=== PATIENT | female | born 1975 | race Asian ===

== ENCOUNTER → 2016-04-15 | Outpatient (CLI) | payer OTHER ==
--- NOTE | 2016-04-15 15:52 | US ---
Complete Abdominal Sonography Clinical History: 40-year-old female with a palpable left upper quadrant mass. Rule out splenomegaly. Technique: A curvilinear 5 MHz transducer was used to sonographically evaluate the upper abdomen. The patient ingested water immediately before the exam, and delayed imaging through the mid-epigastrium was also performed 2 hours later. Multiple cine clips were acquired. Color Doppler was utilized. Comparison Study: None. Findings: In the left upper quadrant of the abdomen, contiguous with the pancreatic body and tail, th ere is a persistent enlarged complex partially-septated cystic mass, which measures 12.8 x 10.6 x 7.9 cm. There is some arterial flow associated with one of the septations. There also appears to be some echogenic peripheral mural nodular thickening and mobile debris. This mass displaces the left kidney laterally. The left kidney measures 10.5 x 5.2 x 6.4 cm, and the aforementioned mass also slightly d isplaces the spleen, which is otherwise normal in size, measuring 9.0 x 4.2 x 9.2 cm. There is no asc ites. This lesion did not change despite a time interval and emptying of the stomach, and is concerni ng for a mucinous cystic pancreatic tumor. A pancreatic pseudocyst is not considered as likely (as th ey tend not to have many septations or solid components, and there is no reported history of pancreat itis). Other differential considerations may include an intraductal papillary mucinous neoplasm, a ma crocystic variant of serious cystadenoma, or less likely a complex peritoneal inclusion cyst. Multiph asic contrast-enhanced CT imaging is recommended for further assessment. The abdominal aorta is normal in size and tapers normally. The visualized IVC is normal in caliber, a nd the hepatic vein trifurcation is normal. The liver is at the upper limits of normal in size, measu ring 17.7 cm along the right midaxillary line. There is no focal hepatic mass. There is no intra or e xtrahepatic bile duct dilatation. The common bile duct measures 3.5 mm. The gallbladder is moderately distended, with no stones, sludge, wall thickening, pericholecystic fluid, or sonographic Cop[place] sig n. The wall thickness is 1.9 mm. There is no evidence of a right pleural effusion. The right kidney i s normal, measuring 10.9 x 4.8 x 3.8 cm, with a renal cortical thickness of 1.7 cm. Impression: There is a large complex cystic mass in the mid-epigastrium adjacent to the pancreatic b yuniel and tail and displacing leftward the left kidney and the normal-appearing spleen. 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 Recommendation: Multiphasic contrast-enhanced CT imaging. A follow-up required test result notification was sent via the [employer] service, 3:36:56 PM, 04/15/2016 , [employer] Message ID [id number].
== END ==
LOC: BMCIMAGING 11:23
PROVIDERS: ATTEND Family Medicine
DX: R19.06 Epigastric swelling, mass or lump (principal)

== ENCOUNTER → 2016-04-16 | Outpatient (CLI) | payer OTHER ==
[~2016-04-16] MED LIST: IOPAMIDOL (ISOVUE-300) 50 ML VIAL IV ONE
--- NOTE | 2016-04-16 16:04 | CT ---
CT Abdomen Without and With Contrast Multiphase (extended study) History: Evaluate epigastric complex cystic mass identified on recent ultrasound Comparison: Ultrasound April 15, 2016 Technique: All images were obtained utilizing the [address] in a single breath-hold. Nonc ontrast images obtained through the abdomen. This is then followed by intravenous injection of 80 mL of Isovue-300 nonionic contrast utilizing a power injector without complication. Images are obtained during the arterial phase, during the portal venous phase and then after several minute delay to eval uate the excretory phase. Dose reduction techniques were utilized. Findings: The stomach and proximal duodenal sweep are distended with food and fluid to the level wher e the transverse duodenum courses between the superior mesenteric vessels and the abdominal aorta. At this point the bowel is severely posteriorly compressed by a large septated cystic mass that is inti mately associated with the distal pancreatic body and tail. On axial image 90 of series 6, the last n ormal portion of the pancreas is seen to be splayed around the mass medial portion of the mass. The m ass measures approximately 11.1 cm in width, 8.2 cm in AP diameter and 10.6 cm in height. The upper p ortion of the mass is associated with some macroscopic calcification associated with these internal s eptations. The mass extrinsically compresses the inferior and posterior stomach. It also extrinsicall y compresses the lower pole of the left kidney. There is no renal obstruction. The splenic artery is displaced anteriorly around a portion of the mass, residing between the mass and the stomach, indicat ing that the mass is truly retroperitoneal. The splenic vein courses posterior to the mass and althou gh compressed, remains patent. There is no mesenteric or retroperitoneal adenopathy or ascites. There is no intra or extrahepatic bi liary obstruction. The gallbladder is not distended. No skeletal lesions are identified. Impression: Large retroperitoneal mass of pancreatic origin. 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 There is no evidence for local invasion or metastatic disea se. Surgical consultation is recommended. General information for patients regarding this examination can be found at [email or web address]. If you have questions or comments about this report, please contact me at [phone] (hospital) or [phone] (cell).
== END ==
LOC: FIMAGING 14:03
PROVIDERS: ATTEND Family Medicine
DX: R93.3 Abnormal findings on diagnostic imaging of other parts of digestive tract (principal); R19.09 Other intra-abdominal and pelvic swelling, mass and lump
CPT/HCPCS: Q9967

== ENCOUNTER 2016-04-22 10:15 | Day surgery (SDC) | payer OTHER ==
[2016-04-22] MEDS ORDERED: PROPOFOL/EMULSION 500 MG/50 ML BOTTLE IV ONE ×2 (11:52→12:27)
[2016-04-22] MEDS ORDERED: levOFLOXACIN 500 MG/DEXTROSE/100 ML BAG IV ONE (12:22)
--- NOTE | 2016-04-22 14:15 | GPN ---
[f rep st] PROCEDURE NOTE DATE OF PROCEDURE: 04/22/2016 PROCEDURE: Esophagogastroduodenoscopy with biopsy, endoscopic ultrasound with fine-needle aspiration. INDICATION: Ferny is a 40-year-old female who had a recent imaging study which revealed a cystic lesion in the body/tail of her pancreas. She returns for further evaluation and possible tissue acquisition. CONSENT: Risks, benefits, and alternatives of the procedure were discussed in detail with the patient. Risk of infection, bleeding, perforation, sedation, and pancreatitis were discussed. All questions were answered. Informed consent was obtained. MEDICATIONS: Propofol. Please see Anesthesia record for details. Levaquin 500 mg IV x1. ESTIMATED BLOOD LOSS: Insignificant. ESOPHAGOGASTRODUODENOSCOPY EXAMINATION: The Olympus upper endoscopy was introduced via the mouth into the esophagus. The proximal and mid esophagus were normal in appearance. An irregular Z-line was noted and biopsies taken. The stomach was entered and closely examined, including retroflexed views of the angularis, cardia and fundus. The mucosa in the antrum and body was erythematous in a patchy distribution. Biopsies were taken. The duodenal bulb and second portion of the duodenum were normal in appearance. ENDOSCOPIC ULTRASOUND EXAMINATION: The Olympus linear echoendoscope was introduced into the mouth and advanced to the second portion of the duodenum. The pancreas was carefully examined from the uncinate process to the tail where the spleen was seen. The pancreatic parenchyma had dilated side branches with hyperechoic ductal baltazar. The main pancreatic duct was not dilated and measured about 3m In the body/tail of the pancreas, a large complex cyst was joseluis in the head and 2mm in the body. In the body/tail of a pancreas a complex cyst as seen which measured approximately 10 cm x 10 cm. A thick wall was seen with thick septations. At least 6 cysts comprised this complex cyst Calcifications were noted in part of the wall of the cyst. The splenic artery was also noted to be displaced by this cystic lesion. Doppler was used to rule out intervening vessels. Two passes were made into the cyst with a 25-gauge needle. On the first pass approximately 2.5 cc were aspirated were sent for CEA and amylase. Another pass was performed and slides were made which revealed histiocytes, debris, with no obvious malignant cells according to cytology.. In the upper part of the lesion close to the stomach, the wall of the cyst was thicker and measured about 3mm. Doppler was used to rule out intervening vessels. Two transgastric fine-needle biopsies were attempted of the cyst wall with a 22-gauge Acquire core needle. A core was visibly seen. No obvious liver lesions were seen. The common bile duct was without stone, stricture, or stenosis. No suspicious perigastric, periportal, or peripancreatic were appreciated. IMPRESSION: 1. 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 Fluid aspirated and biopsy of the wall taken. 2. Irregular Z line, status post biopsy. 3. Gastritis status post biopsy. RECOMMENDATIONS: 1. Follow up on biopsy and FNA results. 2. Clear liquid diet until tomorrow. 3. Ciprofloxacin 500 mg p.o. b.i.d. x5 days. /[id number]/MODL MTDD
[2016-04-23 20:46] LABS: AMYLASE RESULT <30 U/L (())
== END 2016-04-22 14:37 | disposition home or self-care (01) ==
LOC: FSGY 10:15
PROVIDERS: ATTEND Internal Medicine Gastroenterology
PROC: 0DB68ZX Excision of Stomach, Via Natural or Artificial Opening Endoscopic, Diagnostic (ICD-10-PCS; principal; 2016-04-22 11:45)
PROC: 0DB58ZX Excision of Esophagus, Via Natural or Artificial Opening Endoscopic, Diagnostic (ICD-10-PCS; principal; 2016-04-22 11:45)
PROC: 0F9G4ZX Drainage of Pancreas, Percutaneous Endoscopic Approach, Diagnostic (ICD-10-PCS; principal; 2016-04-22 11:45)
DX: K86.2 Cyst of pancreas (principal); K29.70 Gastritis, unspecified, without bleeding
CPT/HCPCS: J1956; J2704